=== PATIENT | female | born 1985 | race Caucasian/White ===

== ENCOUNTER 2020-03-23 06:21 | Inpatient (IN) | payer BC ==
[2020-03-23] VITALS (61 sets, daily range): BP systolic 114–187; BP diastolic 54–107; PULSE 48–109; TEMP 97.5–98.4
[~2020-03-23] VITALS: Ht 160 cm; Wt 102.3 kg
--- NOTE | 2020-03-23 06:20 | NUR ---
Pt arrives on unit ambulatory with spouse. States clear LOF at 0500. Ctx since 0100 that are infrequent. Denies vaginal bleeding. Reports GFM. Changed into clean gown. EFM and toco applied. Amniotest positive. SVE per this RN 2-3//-2. Dr. [place] notified. See physician notification. IV started in LH. Labs drawn. LR infusing. Admission assessment completed. Consents signed. Pt updated on POC and oriented to room. Bed locked in low position. Call light within reach. No questions or concerns at this time.
[2020-03-23] MEDS ORDERED: PRENATAL TABLET PO (06:40)
[2020-03-23] MEDS ORDERED: PROAIR HFA0.09 MG/AC IH (06:40)
[2020-03-23] MEDS ORDERED: VENTOLIN0.09 MG IH (06:41)
[2020-03-23 08:20] LABS: BASO # 0.1 (0.0-0.2); BASO % 0.7 % (0.0-2.0); EOS # 0.1 (0.0-0.7); EOS % 0.7 % (0-4.0); GRAN # 7.1 (1.4-6.5); HEMATOCRIT 37.9 % (37.0-47.0); LYMPH # 2.6 (1.2-3.4); LYMPH % 24.3 % (20.0-51.0); MEAN CELL VOLUME 84 fl (80.0-100.0); MEAN CORPUSCULAR HEMOGLOBIN 29 pg (27.0-31.0); MEAN CORPUSCULAR HGB CONC 34 g/dl (33.0-37.0); MEAN PLATELET VOLUME 11.5 fl (7.4-10.4); MONO # 0.7 (0.1-0.6); MONO % 6.7 % (1.7-9.3); PLATELET COUNT 228 K/mm3 (130-400); RED BLOOD COUNT 4.54 M/mm3 (4.10-5.30); REDCELL DISTRIBUTION WIDTH-CV 13.7 % (11.5-14.5)
[2020-03-23 08:38] LABS: COLLECTION METHOD CLEAN CATCH
[2020-03-23 08:51] LABS: MUCOUS Present /lpf; PH 7 (5-8); SQUAMOUS EPITHELIAL 0-2 /hpf; URINE APPEARANCE Clear; URINE BACTERIA Rare /hpf; URINE BILIRUBIN Negative (NEGATIVE); URINE BLOOD 2+ (NEGATIVE); URINE COLOR Straw; URINE GLUCOSE Negative (NEGATIVE); URINE KETONE Negative (NEGATIVE); URINE LEUKOCYTE ESTERASE Trace (NEGATIVE); URINE NITRATE Negative (NEGATIVE); URINE PROTEIN(semi-quant) Negative (NEGATIVE); URINE RBC 0-2 /hpf; URINE UROBILINOGEN Negative (NEGATIVE); URINE WBC 0-2 /hpf
[2020-03-23 09:11] LABS: ALBUMIN 3.6 gm/dL (3.5-5.0); BILIRUBIN,TOTAL 0.2 mg/dL (0.0-1.0); CALCIUM 9.5 mg/dL (8.4-10.2); CREATININE, serum 0.59 (0.52-1.25); POTASSIUM 4.2 mmol/L (3.4-5.0); TOTAL PROTEIN 6.8 gm/dL (6.4-8.2)
--- NOTE | 2020-03-23 10:33 | NUR ---
Pt sitting at EOB for epidural placement. Difficulty tracing FHR due to maternal position. RN at bedside adjusting monitors. FHR audible.
--- NOTE | 2020-03-23 11:20 | NUR ---
Pt performed self glucose monitoring: SERINA 93
--- NOTE | 2020-03-23 15:00 | NUR ---
BS 83
[2020-03-24 00:20] VITALS: BP 148/85; PULSE 73; TEMP 98.4
[2020-03-24 04:00] VITALS: BP 151/88; PULSE 91; TEMP 97.7
[2020-03-24 07:05] LABS: HEMATOCRIT 31.3 % (37.0-47.0); HEMOGLOBIN 10.7 g/dl (12.5-16.0)
[2020-03-24 09:18] VITALS: BP 139/81; PULSE 86; TEMP 97.3
[2020-03-24 13:26] VITALS: BP 128/78; PULSE 89; TEMP 98
[2020-03-24 17:03] VITALS: BP 122/78; PULSE 94; TEMP 97.6
[2020-03-24 19:15] VITALS: BP 125/79; PULSE 98; TEMP 98.5
[2020-03-25 07:44] VITALS: BP 137/85; PULSE 89; TEMP 98.5
--- NOTE | 2020-03-25 08:45 | NUR ---
Rests in bed, alert. Ibuprofen 600 mg given as ordered.
[2020-03-25] MEDS ORDERED: IBU600 MG PO (08:52)
[2020-03-25] MEDS ORDERED: PROCARDIA XL 3030 MG PO (08:52)
[2020-03-25] MEDS ORDERED: PERCOCET 325 MG1 TA2 PO (08:52)
--- NOTE | 2020-03-25 12:00 | NUR ---
Rests in bed, alert. Percocet 5\325 mg two given as ordered.
[2020-03-25 15:20] VITALS: BP 131/78; PULSE 88; TEMP 98.4
== END 2020-03-25 17:00 | disposition home or self-care (01) | DRG 788 ==
LOC: LDRO 06:21 → LDR 06:45 → OB 21:20
PROVIDERS: Obstetrics & Gynecology; ADMIT Obstetrics & Gynecology
PROC: 10D00Z1 Extraction of Products of Conception, Low, Open Approach (ICD-10-PCS; principal; 2020-03-23)
DX: O48.0 Post-term pregnancy (principal); O24.420 Gestational diabetes mellitus in childbirth, diet controlled; Z3A.40 40 weeks gestation of pregnancy; Z37.0 Single live birth; O99.214 Obesity complicating childbirth; E66.9 Obesity, unspecified; O99.52 Diseases of the respiratory system complicating childbirth; J45.909 Unspecified asthma, uncomplicated; O13.4 Gestational [pregnancy-induced] hypertension without significant proteinuria, complicating childbirth; O62.1 Secondary uterine inertia; N32.81 Overactive bladder; O75.89 Other specified complications of labor and delivery; Z88.2 Allergy status to sulfonamides; Z88.1 Allergy status to other antibiotic agents; O76 Abnormality in fetal heart rate and rhythm complicating labor and delivery
CPT/HCPCS: J0690; J1885; J2270; J2370; J2400; J2405; J2590; J2791; J2795; J3010; J7120